=== PATIENT | male | born 2000 | race African-American/Black ===

== ENCOUNTER 2023-03-01 14:38 | Emergency (ER) | payer OTHER, SELFPAY ==
[2023-03-01 15:01] VITALS: BP 106/59; PULSE 82; RESP 18; TEMP 36.3; O2SAT 98
--- NOTE | 2023-03-01 15:18 | ED.GENADULT ---
HPI - General Adult General Chief complaint: Unspecified Stated complaint: tightness in chest,upper back pain when breathing Time Seen by Provider: 03/01/23 15:09 Source: patient and RN notes reviewed Mode of arrival: ambulatory Limitations: no limitations History of Present Illness HPI narrative: Patient presents today with a 3 day history of worsening asthma symptoms that include tightness in the chest and inability to take a deep breath, shortness of breath, wheezing. Denies cough or fever. He is also complaining of lower abdominal pain x3 days and 2 episodes of vomiting yesterday. Denies any continued nausea. Denies diarrhea, constipation, urinary symptoms. He denies any concerns for sexually transmitted infections. Patient saw his PCP approximately 1 month ago for worsening asthma symptoms and he was placed on a regimen of Advair, and albuterol rescue inhaler, Singulair, and Colleen D. patient states he has use the rescue inhaler a few times and Advair a few times but is not currently taking the Advair consistently. He is not taking the Singulair or Colleen D either. Related Data Home Medications Medication Instructions Recorded Confirmed isotretinoin 40 mg capsule 80 mg PO DAILY 03/01/23 03/01/23 (Accutane) Allergies Allergy/AdvReac Type Severity Reaction Status Date / Time No Known Allergies Allergy Verified 03/01/23 15:02 Review of Systems Review of Systems: CONSTITUTIONAL: Denies body aches, fever, chills, or sweats. EYES: Denies visual changes, redness, or discharge. ENT: Denies rhinorrhea, congestion, sore throat, or otalgia. CARDIOVASCULAR: Denies chest pain, palpitations, or edema. RESPIRATORY: Denies cough.+ shortness of breath, wheezing, chest tightness GASTROINTESTINAL: Denies nausea, or diarrhea.+ lower abdominal pain, vomiting-resolved GENITOURINARY: Denies dysuria or hematuria. SKIN: Denies rash, itching, or wounds. MUSCULOSKELETAL: Denies back pain, joint pain, or myalgia. NEUROLOGIC: Denies headache, numbness, tingling, or weakness. PSYCH: Denies depression or anxiety. [facility] Past Medical History Medical History BMI 21.0-21.9, adult Family History Family History Father No problems noted. Mother No problems noted. Sibling No problems noted. Social History Social History Smoking status: Never smoker Second hand tobacco smoke exposure: No Alcohol intake: current Substance use: never Substance use type: does not use Lack of Transportation: No Lack of Food: Never True Current Housing: I Have Housing Concerned About Future Housing: No Difficulty Paying Gas/Electric Bills: No Difficulty Paying for Meds: No Currently Unemployed: No Education: High School Diploma/GED Difficulty w/ Childcare or Family Care: No Living arrangements: with family Occupation/Education: occupation Additional occupation/education comments: [employer]. Gender identity (if verbalized by the patient): Male Comments At time of signature, I have reviewed and agree with nursing past medical, surgical, social and family history unless otherwise noted. Please see nursing chart for further information. There is no relevant family history pertinent to the presenting complaint Exam Narrative: GENERAL: Well-appearing, well-nourished, and in no acute distress. HEAD: Normocephalic, atraumatic. EYES: EOMI. No redness or drainage. Conjunctivae normal. ENT: Mucous membranes pink and moist. NECK: Normal AROM. Supple. No lymphadenopathy. CHEST: No respiratory distress. Clear to auscultation. Talks in complete sentences. HEART: Regular rate and rhythm. No murmur appreciated. ABDOMEN: Soft, nondistended, normal active bowel sounds.+ suprapubic tenderness without rebo
== END 2023-03-01 15:37 | disposition home or self-care (01) ==
PROVIDERS: Emergency Provider Nurse Practitioner; PCP Nurse Practitioner Family
DX: J45.901 Unspecified asthma with (acute) exacerbation (principal); N39.0 Urinary tract infection, site not specified
CPT/HCPCS: 81003; 87086; 99213; G0463

== ENCOUNTER 2023-06-27 21:42 | Emergency (ER) | payer OTHER, SELFPAY ==
[2023-06-27 21:44] VITALS: BP 130/86; PULSE 73; RESP 18; TEMP 36.6; O2SAT 98
--- NOTE | 2023-06-28 00:40 | PC.NURSE ---
No answer when called for repeat VS
--- NOTE | 2023-06-28 02:06 | PC.NURSE ---
when this RN went into the room, patient was not found and his gown was laid on the bed. Did not see them walk out.
== END 2023-06-28 02:36 | disposition left against medical advice (07) ==
PROVIDERS: PCP Nurse Practitioner Family
DX: R06.02 Shortness of breath (principal)
CPT/HCPCS: 99199

== ENCOUNTER 2023-06-28 09:19 | Emergency (ER) | payer OTHER, SELFPAY ==
[2023-06-28 09:25] VITALS: BP 122/67; PULSE 66; RESP 16; TEMP 36.5; O2SAT 98
--- NOTE | 2023-06-28 09:25 | ED.GENADULT ---
HPI - General Adult General Chief complaint: Shortness of Breath/Dyspnea Stated complaint: Shortness of Breathe,Chest Tightness Source: patient Mode of arrival: ambulatory Limitations: no limitations History of Present Illness HPI narrative: 22-year-old male with history of asthma presented for complaint of ?chest tightness? over the last 2 days. Tightness is primarily to the right and mid chest. Denies significant shortness of breath, cough, wheezing, fatigue, dizziness, nausea vomiting, diarrhea, fevers or chills. States he has a prescription for Singulair, he does not take this due to the risk for depression, as he is also taking Accutane. He has an albuterol HFA which he has been using, and used nebulizer which he says is . Denies sick symptoms. Related Data Home Medications Medication Instructions Recorded Confirmed isotretinoin 40 mg capsule 80 mg PO DAILY 03/01/23 06/28/23 (Accutane) Allergies Allergy/AdvReac Type Severity Reaction Status Date / Time No Known Allergies Allergy Verified 06/28/23 09:20 Review of Systems Review of Systems: CONSTITUTIONAL: Denies body aches, fever, chills, or sweats. EYES: Denies visual changes, redness, or discharge. ENT: Denies rhinorrhea, congestion, sore throat, or otalgia. CARDIOVASCULAR: Denies chest pain, palpitations, or edema. RESPIRATORY: Reports chest tight sensation, denies sob, wheezing. GASTROINTESTINAL: Denies abdominal pain, nausea, vomiting, or diarrhea. GENITOURINARY: Denies dysuria or hematuria. SKIN: Denies rash, itching, or wounds. MUSCULOSKELETAL: Denies back pain, joint pain, or myalgia. NEUROLOGIC: Denies headache, numbness, tingling, or weakness. PSYCH: Denies depression or anxiety. All systems reviewed & are unremarkable except as noted in HPI and below PMFSH Past Medical History Medical History BMI 21.0-21.9, adult Family History Family History Father No problems noted. Mother No problems noted. Sibling No problems noted. Social History Social History Smoking status: Never smoker Second hand tobacco smoke exposure: No Alcohol intake: current Substance use: never Substance use type: does not use Lack of Transportation: No Lack of Food: Never True Current Housing: I Have Housing Concerned About Future Housing: No Difficulty Paying Gas/Electric Bills: No Difficulty Paying for Meds: No Currently Unemployed: No Education: High School Diploma/GED Difficulty w/ Childcare or Family Care: No Living arrangements: with family Occupation/Education: occupation Additional occupation/education comments: [employer]. [employer]. Gender identity (if verbalized by the patient): Male Comments At time of signature, I have reviewed and agree with nursing past medical, surgical, social and family history unless otherwise noted. Please see nursing chart for further information. There is no relevant family history pertinent to the presenting complaint Exam Narrative: GENERAL: Well-appearing, in no acute distress. EYES: EOMI. No redness or drainage. Conjunctivae normal. ENT: Mucous membranes pink and moist. No rhinorrhea. TMs normal bilaterally. Throat normal. Uvula midline. NECK: Normal AROM. Supple. CHEST: No respiratory distress. lungs clear to all jeffries. Speaks full sentences HEART: Regular rate and rhythm. No murmur appreciated. ABDOMEN: Soft, nontender, nondistended, normal active bowel sounds. EXTREMITIES: Normal range of motion. No edema. SKIN: Warm, dry, no rash. Capillary refill normal. Normal skin turgor. NEURO: Alert and oriented x3. Gait steady. PSYCH: Normal affect. Course Course Emergency Course: Patient is aware of diagnosis, understands and agrees to treatment plan. Luciana santamaria
== END 2023-06-28 09:41 | disposition home or self-care (01) ==
PROVIDERS: Emergency Provider Nurse Practitioner Family; PCP Nurse Practitioner Family
DX: J45.909 Unspecified asthma, uncomplicated (principal)
CPT/HCPCS: 99213; G0463

== ENCOUNTER 2024-01-10 18:20 | Emergency (ER) | payer BC, SELFPAY ==
--- NOTE | 2024-01-10 18:38 | ED.GENADULT ---
HPI - General Adult General Chief complaint: Upper Respiratory Infection Stated complaint: Headache and Right Eye Pain Time Seen by Provider: 01/10/24 18:41 Source: patient Mode of arrival: ambulatory Limitations: no limitations History of Present Illness HPI narrative: 23-year-old male presented for complaint of intermittent right-sided headache and right eye pain over the past 3 days. Currently without headache. Recent pain 6/10 when it occurs. He has been taking ibuprofen or Aleve, but denies improvement. He states the improvement in the pain is unrelated to taking the medication. Denies associated vision changes, photophobia, dizziness, nausea, vomiting, nasal congestion, ptosis, fevers or chills. Denies stress. Endorses occasional heavy alcohol intake. Related Data Allergies Allergy/AdvReac Type Severity Reaction Status Date / Time No Known Allergies Allergy Verified 01/10/24 18:21 Review of Systems Review of Systems: CONSTITUTIONAL: Denies body aches, fever, chills, or sweats. EYES: Denies visual changes, redness, or discharge. ENT: Denies rhinorrhea, congestion, sore throat, or otalgia. CARDIOVASCULAR: Denies chest pain, palpitations, or edema. RESPIRATORY: Denies cough or dyspnea. GASTROINTESTINAL: Denies abdominal pain, nausea, vomiting, or diarrhea. SKIN: Denies rash, itching, or wounds. MUSCULOSKELETAL: Denies back pain, joint pain, or myalgia. NEUROLOGIC: reports intermittent headache, denies numbness, tingling, or weakness. All systems reviewed & are unremarkable except as noted in HPI and below PMFSH Past Medical History Medical History (Updated 01/10/24 @ 19:09 by Yue Giblert APRN) Asthma BMI 21.0-21.9, adult Family History Family History Father No problems noted. Mother No problems noted. Sibling No problems noted. Social History Social History Smoking status: Never smoker Second hand tobacco smoke exposure: No Alcohol intake: current Substance use: never Substance use type: does not use Lack of Transportation: No Lack of Food: Never True Current Housing: I Have Housing Concerned About Future Housing: No Difficulty Paying Gas/Electric Bills: No Difficulty Paying for Meds: No Currently Unemployed: No Education: High School Diploma/GED Difficulty w/ Childcare or Family Care: No Living arrangements: with family Occupation/Education: occupation Additional occupation/education comments: [employer]. Gender identity (if verbalized by the patient): Male Comments At time of signature, I have reviewed and agree with nursing past medical, surgical, social and family history unless otherwise noted. Please see nursing chart for further information. There is no relevant family history pertinent to the presenting complaint Exam Narrative: GENERAL: Well-appearing, well-nourished, and in no acute distress. HEAD: Normocephalic, atraumatic. EYES: EOMI. No redness or drainage. Conjunctivae normal. ENT: Mucous membranes pink and moist. No rhinorrhea. TMs normal bilaterally. Throat normal. Uvula midline. NECK: Normal AROM. Supple. No lymphadenopathy. CHEST: No respiratory distress. Clear to auscultation. HEART: Regular rate and rhythm. No murmur appreciated. Normal peripheral pulses. SKIN: Warm, dry, no rash to scalp. Normal skin turgor. NEURO: No focal deficits. Alert and oriented x3. Gait steady. PSYCH: Normal affect. No signs of depression or anxiety. Course Course Emergency Course: Patient is aware of diagnosis, understands and agrees to treatment plan. Anticipatory guidance given. Patient agrees to follow-up as directed and is aware of reasons to seek care at the emergency department. Portions of this record may have been created with voice recognition software Level of Care: Express Care Visit Vit
[2024-01-10 18:46] VITALS: BP 118/60; PULSE 65; RESP 16; TEMP 36.5; O2SAT 100
== END 2024-01-10 18:56 | disposition home or self-care (01) ==
PROVIDERS: Emergency Provider Nurse Practitioner Family; PCP Family Medicine
DX: R51.9 Headache, unspecified (principal); J45.909 Unspecified asthma, uncomplicated
CPT/HCPCS: 99213; G0463

== ENCOUNTER 2024-06-10 13:09 | Emergency (ER) | payer BC, OTHER, SELFPAY ==
--- NOTE | 2024-06-10 13:26 | ED.GENADULT ---
HPI - General Adult General Chief complaint: Chest Pain Stated complaint: chest pain Time Seen by Provider: 06/10/24 13:27 Source: patient, RN notes reviewed and old records reviewed Mode of arrival: ambulatory Limitations: no limitations History of Present Illness HPI narrative: 23-year-old male with a history of asthma presents to the [facility] with continued chest pain. Patient states that it started early last week, was seen given a breathing treatment and discharged with steroids from [facility] emergency room. States the pain has been constant since last week. Reports shortness of breath, did use his albuterol inhaler just prior to arrival. Unable to reproduce pain with palpation. Onset (ago): day(s) (6-7) Severity: moderate Severity scale (1-10): 6 Quality: constant Treatments prior to arrival: other Related Data Home Medications Medication Instructions Recorded Confirmed fluticasone furoate 100 inhalation 06/10/24 mcg-vilanterol 25 mcg/dose inhalation powder (Breo Ellipta) isotretinoin 40 mg capsule mg PO 06/10/24 (Accutane) Allergies Allergy/AdvReac Type Severity Reaction Status Date / Time No Known Allergies Allergy Verified 06/10/24 13:24 Review of Systems Review of Systems: All systems reviewed & are unremarkable except as noted in HPI and below Constitutional: Constitutional: Reports no additional constitutional complaints Eyes: Eyes: Reports no additional eye complaints ENT: Reports system reviewed and no additional complaints, except as documented Cardiovascular: Cardiovascular: Reports as per HPI, Reports chest pain and Reports dyspnea Respiratory: Respiratory: Reports as per HPI, Denies chest congestion, Denies cough and Reports dyspnea Gastrointestinal: Gastrointestinal: Reports no additional gastrointestinal complaints, Denies abdominal pain, Denies nausea and Denies vomiting Musculoskeletal: Musculoskeletal: Reports no additional musculoskeletal complaints Integumentary/Breasts: Skin/Breast: Reports system reviewed and no additional complaints, except as docu Neurologic: Reports system reviewed and no additional complaints, except as documented Psychiatric: Psychiatric: Reports no additional psychiatric complaints Allergic/Immunologic: Allergic/Immunologic: Reports no additional allergic/immunologic complaints PMFSH Past Medical History Medical History Asthma BMI 21.0-21.9, adult Family History Family History Father No problems noted. Mother No problems noted. Sibling No problems noted. Social History Social History Smoking status: Never smoker Second hand tobacco smoke exposure: No Alcohol intake: current Substance use: never Substance use type: does not use Lack of Transportation: No Lack of Food: Never True Current Housing: I Have Housing Concerned About Future Housing: No Difficulty Paying Gas/Electric Bills: No Difficulty Paying for Meds: No Currently Unemployed: No Education: High School Diploma/GED Difficulty w/ Childcare or Family Care: No Living arrangements: with family Occupation/Education: occupation Additional occupation/education comments: [employer]. [employer]. Gender identity (if verbalized by the patient): Male Comments At the time of my signature, I reviewed and agree with the nursing past medical, surgical, social, and family history. There is no relevant family history pertinent to the patient complaint. Exam Const: General: cooperative, healthy appearing, comfortable, no acute distress, well developed, alert and well nourished Nutritional Appearance: well nourished Orientation/consciousness: patient oriented x3 Limitations: no limitations HENMT: Head: normal to inspection Ears: hearing grossly normal bila
--- NOTE | 2024-06-10 13:27 | ECG_ITS ---
Test Date: 2024-06-10 13:35:37 Measurements Intervals [place] Rate: 101 P: 69 FL: 125 QRS: 85 QRSD: 91 T: 48 QT: 312 QTc: 405 Interpretive Statements SINUS TACHYCARDIA POSSIBLE LEFT ATRIAL ENLARGEMENT INCOMPLETE RIGHT BUNDLE BRANCH BLOCK BORDERLINE ECG No previous ECG available for comparison Electronically Signed On 06-10-2024 14:19:54 CDT by Jay Ball D.O.
[2024-06-10 13:34] VITALS: BP 150/87; PULSE 102; RESP 20; TEMP 36.4; O2SAT 100
== END 2024-06-10 13:42 | disposition short-term general hospital (02) ==
PROVIDERS: Emergency Provider Nurse Practitioner; PCP Nurse Practitioner Family
DX: R07.9 Chest pain, unspecified (principal); J45.909 Unspecified asthma, uncomplicated
CPT/HCPCS: 93005; 99213; G0463

== ENCOUNTER 2025-06-01 23:00 | Emergency (ER) | payer OTHER, SELFPAY ==
--- NOTE | ~2025-06-01 | XR_ITS ---
EXAMINATION: XR foot RT min 3V, XR ankle RT min 3V DATE: 06/01/2025 23:18 INDICATION: Right foot and ankle injury post kickball accident TECHNIQUE: 1. Anteroposterior, mortise, additional oblique and lateral view of the right ankle were obtained. 2. Dorsoplantar, two oblique and lateral views of the right foot were obtained. COMPARISON: None. FINDINGS: Alignment of the right foot and ankle is normal. No fracture. Joint spaces are well maintained. No ankle joint effusion. Mild soft tissue swelling along the dorsal and dorsolateral aspect of the midfoot. IMPRESSION: 1. No osseous abnormality. Reviewed, dictated and finalized at location A. IMPRESSION: 1. No osseous abnormality. IMPRESSION: 1. No osseous abnormality.
[2025-06-01 23:03] VITALS: BP 119/85; PULSE 87; RESP 16; TEMP 38.1; O2SAT 98
--- NOTE | 2025-06-02 03:08 | ED_ITS ---
HPI - General Adult General Chief complaint: Extremity Injury, Lower Stated complaint: RIGHT FOOT/ANKLE INJURY Time Seen by Provider: 06/02/25 03:03 History of Present Illness HPI narrative: Patient 24-year-old gentleman presents emergency department chief complaint of right ankle pain/foot pain patient reports he is playing kickball reports he heard a pop and reports that he has swelling in the dorsum of his right foot the patient reports that it is exquisitely painful whenever he tries to bear weight Related Data Home Medications ?Medication ?Instructions ?Recorded ?Confirmed ?Last Taken ?Type isotretinoin PO 06/01/25 Unknown History Allergies Allergy/AdvReac Type Severity Reaction Status Date / Time No Known Allergies Allergy Verified 06/01/25 23:05 Review of Systems Review of Systems: A 10 system review of systems was completed on the patient and is negative except for what is stated in the HPI. Nursing and ancillary documentation was reviewed. [facility] Past Medical History Medical History Asthma BMI 21.0-21.9, adult Family History Family History Father No problems noted. Mother No problems noted. Sibling No problems noted. Social History Social History Smoking status: Never smoker Second hand tobacco smoke exposure: No Alcohol intake: current Substance use: never Substance use type: does not use Do You Feel Safe in your Home?: Yes Lack of Transportation: No Lack of Food: Never True Current Housing: I Have Housing Concerned About Future Housing: No Difficulty Paying Gas/Electric Bills: No Difficulty Paying for Meds: No Currently Unemployed: No Education: High School Diploma/GED Difficulty w/ Childcare or Family Care: No Living arrangements: with family Occupation/Education: occupation Additional occupation/education comments: [employer]. [employer]. Gender identity (if verbalized by the patient): Male Exam Narrative: GENERAL: Well-appearing, well-nourished, and in no acute distress. HEAD: Normocephalic, atraumatic. EYES: PERRLA and EOMI. ENT: Nares clear, no rhinorrhea or epistaxis. Mucous membranes moist. NECK: Supple. CHEST: Clear to auscultation. No respiratory distress. HEART: Regular rate and rhythm. No murmur heard. Normal peripheral pulses. ABDOMEN: Soft, nontender, nondistended, normal active bowel sounds. EXTREMITIES: Normal range of motion. No edema. Swelling to the dorsum of the right foot, tenderness to palpation no laceration no bruising SKIN: Warm, dry, no rash. NEURO: No focal deficits. Alert and oriented x3. PSYCH: Normal mood and affect. Course Vital Signs Vital signs: Vital Signs Temperature 38.1 C H 06/01/25 23:03 Pulse Rate 87 06/01/25 23:03 Respiratory Rate 16 06/01/25 23:03 Blood Pressure 119/85 06/01/25 23:03 Pulse Oximetry 98 06/01/25 23:03 Oxygen Delivery Room Air 06/01/25 23:03 Temperature 38.1 C H 06/01/25 23:03 Pulse Rate 87 06/01/25 23:03 Respiratory Rate 16 06/01/25 23:03 Blood Pressure 119/85 06/01/25 23:03 Pulse Oximetry 98 06/01/25 23:03 Oxygen Delivery Room Air 06/01/25 23:03 Medical Decision Making MDM Narrative Medical decision making narrative: Plain film x-rays right ankle and right foot showed no evidence of fracture Patient was placed in Aldo wrap and will be placed on crutches with rest elevation ice Vital Signs Vital Signs: Vital Signs Temperature 38.1 C H 06/01/25 23:03 Pulse Rate 87 06/01/25 23:03 Respiratory Rate 16 06/01/25 23:03 Blood Pressure 119/85 06/01/25 23:03 Pulse Oximetry 98 06/01/25 23:03 Oxygen Delivery Room Air 06/01/25 23:03 Temperature 38.1 C H 06/01/25 23:03 Pulse Rate 87 06/01/25 23:03 Respiratory Rate 16 06/01/25 23:03 Blood Pressure 119/85 06/01/25 23:03 Pulse Oximetry 98 06/01/25 23:03 Oxygen Delivery Room Air 06/01/25 23:03 Discharge Plan Discharge Clinical Impression: Right foot sprain, Right ankle sprain Patient Disposition: Home Condition: Stable Instructions: Antibiotic Form, Ankle Sprain (ED), Crutch Instructions (ED), Foot Sprain (ED) Additional Instructions: Please rest ice and elevate the extremity may take ibuprofen for the pain please use the crutches for weight-bearing as tolerated Patient Language: Irish Prescriptions: No Action (DME) AIRS Adult Aerosol Mask Misc See Rx Instructions .Route Qty: 1 0RF Rx Instructions: As directed (DME) nebulizers [VixOne Nebulizer-Adult Mask] Misc See Rx Instructions .Route Qty: 1 0RF Rx Instructions: As directed albuterol sulfate 90 mcg/actuation HFA aerosol inhaler 1 puff inhalation Q4H PRN (Reason: shortness of breath or wheezing) Qty: 6.7 3RF budesonide-formoterol [Symbicort] 160-4.5 mcg/actuation HFA aerosol inhaler 2 puff inhalation Q12H Qty: 10.2 3RF erythromycin 5 mg/gram (0.5 %) ointment 1 applic RIGHT EYE BID Qty: 3.5 0RF montelukast [Singulair] 10 mg tablet 10 mg PO QHS Qty: 90 0RF ibuprofen 800 mg tablet 800 mg PO Q6H PRN (Reason: pain) Qty: 20 0RF Airsupra 90-80 mcg/actuation HFA aerosol inhaler 2 inh inhalation QID PRN (Reason: shortness of breath) Qty: 5.9 0RF Rx Instructions: pulm manages isotretinoin [Accutane] PO albuterol sulfate 2.5 mg /3 mL (0.083 %) solution for nebulization 2.5 mg inhalation Q4-6H PRN (Reason: shortness of breath or wheezing) Qty: 75 0RF Follow-up/Referrals: Corey Monge MD [Primary Care Provider, Family Practice] Time of Disposition: 03:10
[2025-06-02] MEDS: IBUPROFEN 400 MG TABLET 800 MG PO (03:11)
== END 2025-06-02 03:35 | disposition home or self-care (01) ==
LOC: ANHED 06-02 03:23
PROVIDERS: Emergency Provider Emergency Medicine; PCP Family Medicine
DX: S93.401A Sprain of unspecified ligament of right ankle, initial encounter (principal); S93.601A Unspecified sprain of right foot, initial encounter; J45.909 Unspecified asthma, uncomplicated; Z79.899 Other long term (current) drug therapy; X50.9XXA Other and unspecified overexertion or strenuous movements or postures, initial encounter; Y93.6A Activity, physical games generally associated with school recess, summer camp and children
CPT/HCPCS: 73610; 73630; 99283; A9270